=== PATIENT | male | born 1940 | race Caucasian/White ===

== ENCOUNTER 2019-03-19 11:38 | Emergency (ER) | payer SELFPAY ==
[~2019-03-19] VITALS: Ht 182.9 cm; Wt 78.0 kg
--- NOTE | 2019-03-19 11:51 | RAD ---
EXAM: CT HEAD WITHOUT CONTRAST. HISTORY: Code stroke. Unresponsive, aphasia, weakness. TECHNIQUE: Computed tomography of the head was performed without intravenous contrast. *One or more of the following individualized dose reduction techniques were utilized for this examination: 1. Automated exposure control. 2. Adjustment of the mA and/or kV according to patient size. 3. Use of iterative reconstruction technique. COMPARISON: None. FINDINGS: There is no intracranial hemorrhage. Hypoattenuation within the periventricular white matter indicates mild chronic microangiopathic change. Prominence of the lateral ventricles and hemispheric sulci indicates moderate atrophy. The visualized paranasal sinuses appear clear. The orbits are unremarkable. There is a small amount of fluid bilaterally in the mastoid air cells. The calvarium reveals no suspicious lesions. 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 IMPRESSION: 1. No intracranial hemorrhage. 2. Moderate atrophy and mild chronic microangiopathic white matter change. These findings were called to Dr. Chavez by Carmelo Tong on 03/19/2019 at 11:46 AM. FOR INTERNAL CODING PURPOSES RESULT CODE: (C) Electronically signed by: Chandra Tong MD (03/19/2019 11:48 AM) [facility]
--- NOTE | 2019-03-19 11:56 | PHYS DOC ---
Adult General HPI HPI Patient is a 78 yo m biba cva code stroke pt was doing physical therapy last normal according to viktoria, therapy got him up and he was talking kind of slow 8 am, when she got him out of bed she was slow to respond to her, a little weaker than she is used to. then up in wheelchair in his room, they walked back by and he was slumped over and could barely open his eyes 1040 am. normallyl can walk, talk. has hx of dementia. reading newspaper yesterday. gerardo, able to transfer, got in his wheelchair. at that time very minimal words, did sign "gun to his head" thing. pmh: hld dementia gen weakness no anticoagulation Review of Systems Review of Systems limited by aphasia Current Medications Current Medications CD4 record no anticoagulation Physical Exam Physical Exam Constitutional: Well developed, well nourished, no acute distress, non-toxic appearance. [] HENT: Normocephalic, atraumatic, bilateral external ears normal, oropharynx moist, no oral exudates, nose normal. [] Eyes: PERRLA, EOMI, conjunctiva normal, no discharge. [] Neck: Normal range of motion, no tenderness, supple, no stridor. [] Cardiovascular:Heart rate regular rhythm, no murmur [] Lungs & Thorax: Bilateral breath sounds clear to auscultation [] Abdomen: Bowel sounds normal, soft, no tenderness, no masses, no pulsatile masses. [] Skin: Warm, dry, no erythema, no rash. [] Back: No tenderness, no CVA tenderness. [] Extremities: No tenderness, no cyanosis, no clubbing, ROM intact, no edema. [] Neurologic: see nihss Current Patient Data Vital Signs S QUESTIONS WITH BRIEF, BUT ACCURATE ANSWERS. HE DOES C/O HEADACHE Distress * Moderate Temperature (Fahrenheit): * 97.4 degrees F (97.6-99.5) L Patient Temperature * 97.4 degrees F (97.5-99.5) L Temperature Source * Oral Blood Pressure Systolic * 157 mm Hg (100-140) H Blood Pressure Diastolic * 75 mm Hg (60-100) Blood Pressure Mean * 102 mm Hg Blood Pressure Location * Right Arm Blood Pressure Source * Automatic Cuff Pulse Rate * 51 beats per minute (60-90) L Pulse Assessment Method * Monitor Respiratory Rate * 20 breaths per minute (12-24) Oxygen Delivery Method * Room Air Bedside Pulse Oximetry * 98 % Treatment Prior to Arrival * Yes - EMS VITALS, GLUCOSE AT 98MG/DL Complaint of Pain * Yes Pain Scale Type EKG EKG []Sinus bradycardia rate of 52 no skating ischemic changes no STEMI interpreted by me time of encounter Radiology/Procedures Radiology/Procedures [] Impressions: TECHNIQUE: Computed tomography of the head was performed without intravenous contrast. *One or more of the following individualized dose reduction techniques were utilized for this examination: 1. Automated exposure control. 2. Adjustment of the mA and/or kV according to patient size. 3. Use of iterative reconstruction technique. COMPARISON: None. FINDINGS: There is no intracranial hemorrhage. Hypoattenuation within the periventricular white matter indicates mild chronic microangiopathic change. Prominence of the lateral ventricles and hemispheric sulci indicates moderate atrophy. The visualized paranasal sinuses appear clear. The orbits are unremarkable. There is a small amount of fluid bilaterally in the mastoid air cells. The calvarium reveals no suspicious lesions. 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 IMPRESSION: 1. No intracranial hemorrhage. 2. Moderate atrophy and mild chronic microangiopathic white matter change. These findings were called to Dr. Chisholm by Carmelo Tong on 03/19/2019 at 11:46 AM. FOR INTERNAL CODING PURPOSES RESULT CODE: (C) Course & Med Decision Making Course & Med Decision Making Pertinent Labs and Imaging studies reviewed. (See chart for details) []78-year-old male wake up stroke confirmed with the physical therapist to first reported the symptoms CT head negative acute stroke scale primarily speech problem I called Dr. mullen transfer to [place] for MRI and further workup Dragon Disclaimer Dragon Disclaimer This electronic medical record was generated, in whole or in part, using a voice recognition dictation system. Departure Departure: Impression: Primary Impression: Aphasia Disposition: 02 XFER SHT-TRM HOSP Condition: STABLE NIHSS - ED NIH Stroke Scale: NIH Stroke Scale Response (Comments) Value Level of Consciousness: 0 Alert/Responsive 0 Best Language: 3 Mute 3 Dysathria: 2 Severe 2 Total 5 SLOAN CHISHOLM MD Mar 19, 2019 11:56
--- NOTE | 2019-03-19 11:56 | EKG ---
[address] [address] Test Date: 2019-03-19 Test Time: 11:54:02 Pat Name: NENA AGUILAR Department: Room: Gender: M Day Care Aide: EMANUEL : 1940 Requested By: SLOAN CHISHOLM Order Number: [id number] Reading MD: Measurements Intervals [place] Rate: 52 P: 28 VA: 182 QRS: -11 QRSD: 98 T: 64 QT: 452 QTc: 422 Interpretive Statements SINUS RHYTHM LEFTWARD AXIS QRS(T) CONTOUR ABNORMALITY CONSIDER ANTEROSEPTAL MYOCARDIAL DAMAGE POSSIBLY ABNORMAL ECG RI6.01 No previous ECG available for comparison
[2019-03-19 12:00] LABS: BASO # 0.1 x10^3/uL (0.0-0.2); BASO % 1 % (0-3); EOS # 0.2 x10^3/uL (0.0-0.7); EOS % 2 % (0-3); HEMATOCRIT 46.9 % (39.0-53.0); HEMOGLOBIN 15.9 g/dL (13.0-17.5); LYMPH # 2.2 x10^3/uL (1.0-4.8); LYMPH % 27 % (24-48); MEAN CORPUSCULAR HEMOGLOBIN 31 pg (25-35); MEAN CORPUSCULAR HGB CONC 34 g/dL (31-37); MEAN CORPUSCULAR VOLUME 92 fL (79-100); MONO # 0.7 x10^3/uL (0.0-1.1); MONO % 8 % (0-9); NEUT % 61 % (31-73); PLATELET COUNT 189 x10^3/uL (140-400); RED BLOOD COUNT 5.09 x10^6/uL (4.30-5.70); RED CELL DISTRIBUTION WIDTH 14.2 % (11.5-14.5); WHITE BLOOD COUNT 8.1 x10^3/uL (4.0-11.0)
[2019-03-19 12:13] LABS: ALBUMIN 3.1 g/dL (3.4-5.0); ALBUMIN/GLOBULIN RATIO 0.8 (1.0-1.7); CALCIUM 8.6 mg/dL (8.5-10.1); CREATININE 1.2 mg/dL (0.7-1.3); GFR 58.3; POTASSIUM 4.4 mmol/L (3.5-5.1); TOTAL BILIRUBIN 0.8 mg/dL (0.2-1.0); TOTAL PROTEIN 6.8 g/dL (6.4-8.2)
[2019-03-19] MEDS ORDERED: ASPIRIN 81 MG TAB.CHEW PO ONE (13:00)
[2019-03-19 14:15] VITALS: BP 130/79
== END 2019-03-19 15:00 | disposition short-term general hospital (02) ==
LOC: ER 11:38
DX: R47.01 Aphasia (principal); R53.1 Weakness; F03.90 Unspecified dementia, unspecified severity, without behavioral disturbance, psychotic disturbance, mood disturbance, and anxiety; Z86.73 Personal history of transient ischemic attack (TIA), and cerebral infarction without residual deficits
CPT/HCPCS: 36415; 70450; 80053; 82947; 84484; 85025; 85610; 93005; 99285-25